=== PATIENT | male | born 1960 | race Caucasian/White ===

== ENCOUNTER 2018-04-12 06:45 | Day surgery (SDC) | payer OTHER ==
[2018-02-26 15:52] VITALS: BMI 28.0
[2018-04-12 07:23] VITALS: TEMP 97.7
[2018-04-12] MEDS ORDERED: SUCCINYLCHOLINE CHLORIDE 200 MG/10 ML VIAL ONE (07:24)
[2018-04-12] MEDS ORDERED: MIDAZOLAM HCL 2 MG/2 ML SINGLE DOSE VIAL ONE (07:24)
[2018-04-12] MEDS ORDERED: PROPOFOL 20 ML ONE ×9 (07:24)
[2018-04-12] MEDS ORDERED: ePHEDrine SULFATE 50 MG/1 ML AMPULE ONE (07:25)
[2018-04-12] MEDS ORDERED: oxyCODONE HCL 5 MG TABLET PO PRN (07:47)
[2018-04-12] MEDS ORDERED: KETAMINE HCL 200 MG/20 ML VIAL ONE (07:47)
--- NOTE | 2018-04-12 09:40 | OP ---
Operative Note - Note: Operative Date: 04/12/18 Pre-Operative Diagnosis: Right Kidney stone Operation: Right ESWL Findings: 7 mm lower pole Right kidney stone Post-Operative Diagnosis: Same as Pre-op Surgeon: Jules Philippe Anesthesia: Fractional Estimated Blood Loss (mls): 0 Operative Report Dictated: Yes
[2018-04-12 11:06] VITALS: BP 126/71; PULSE 64
--- NOTE | 2018-04-13 07:47 | OP ---
DATE OF OPERATION: 04/12/2018 PREOPERATIVE DIAGNOSIS: Right renal stone. POSTOPERATIVE DIAGNOSIS: Right renal stone. PROCEDURE: Right extracorporeal shock wave lithotripsy. ATTENDING: Jules Lima MD ANESTHESIA: Fractional. OPERATION FOLLOWS: The patient was brought in the operating room, placed in supine position on the operating room table. Ultrasonography and fluoroscopy were performed. A 7-mm right renal stone was identified. Shock wave lithotripsy was then performed under real time ultrasonography and fluoroscopy. No complications were noted. The patient tolerated the procedure very well. The disposition of the patient was to the recovery room. Katia [id number]
== END 2018-04-12 11:08 | disposition home or self-care (01) ==
LOC: JASU-SURG 06:45
PROVIDERS: ATTEND Urology
PROC: 0TF3XZZ Fragmentation in Right Kidney Pelvis, External Approach (ICD-10-PCS; principal; 2018-04-12 08:00)
DX: N20.0 Calculus of kidney (principal)
CPT/HCPCS: 82962